=== PATIENT | female | born 1995 | race Caucasian/White ===

== ENCOUNTER 2024-08-02 10:53 | Inpatient (IN) ==
[2024-08-02] MEDS ORDERED: OXYTOCIN 30 UNITS/NSS 30 UNITS/500 ML BAG IV PRN ×2 (11:40→18:56)
--- NOTE | 2024-08-02 11:53 | Labor Progress Brief Note ---
Date of Service August 02, 2024 Subjective Contractions Q2-3m since 0600. No VB, no LOF, good FM. Prior . Current preg c/b obesity, A2GDM with insulin at bedtime only, and GBS pos. Maternal SSRI use also noted. Assessment & Plan (1) Normal labor: Plan: Admit. Epidural if desired, Pit if needed for augmentation. (2) Group B streptococcal infection during : Plan: PCN (3) Obesity affecting : Plan: Noted (4) Insulin controlled gestational diabetes mellitus (GDM) during : Plan: Q1h FSBG, then if any 130 or higher will initiate protocol for mgmt. Admission and Anticipated Discharge Date Admission Date: August 02, 2024 Physical Exam Genitourinary: [place] Q3 Cvx /-2 FHT Cat 1 Results & Data Vital Signs (Past 12 Hours) Vital Signs Temp Pulse Resp BP 08/02/24 11:22 97.7 F 22 08/02/24 11:09 97.7 F 96 H 22 125/84 Coding Level of Care Code None Diagnoses Normal labor O80; Z37.9 Group B streptococcal infection during O98.819; B95.1 Obesity affecting O99.210 Insulin controlled gestational diabetes mellitus (GDM) during O24.414
[2024-08-02] MEDS: PENICILLIN GK 6 MU in SODIUM CHLORIDE 0.9% 250 ML IV STA (12:12)
[2024-08-02] MEDS: LACTATED RINGER'S 1,000 ML IV PRN (12:12)
[2024-08-02 12:35] LABS: Hemoglobin 11.7 g/dl (12.0-16.0); Mean Corpuscular Hemoglobin 25.5 pg (25.0-34.0); Mean Corpuscular Hgb Conc 32.5 g/dL (32.0-36.0); Mean Corpuscular Volume 78.6 fL (80.0-100.0); Mean Platelet Volume 10.4 fL (9.4-12.4); Platelet Count 359 K/uL (130-400); RDW Coefficient of Variation 15.4 % (11.5-14.5); RDW Standard Deviation 43.2 fL (36.4-46.3); Red Blood Count 4.58 M/uL (4.20-5.40); White Blood Count 11.42 K/ul (4.8-10.8)
[2024-08-02] MEDS ORDERED: ePHEDrine sulfate 50 MG/ML AMP IV PRN (12:41)
[2024-08-02] MEDS ORDERED: diphenhydrAMINE 50 MG/ML VIAL IV PRN (12:41)
[2024-08-02] MEDS ORDERED: SODIUM CHLORIDE 0.9% PF INJ 10 ML VIAL EPI PRN (12:41)
[2024-08-02] MEDS ORDERED: NALBUPHINE HCL INJ 10 MG/ML AMP IV PRN (12:41)
[2024-08-02] MEDS ORDERED: fentaNYL citrate PF 100 MCG/2 ML VIAL EPI PRN (12:41)
[2024-08-02] MEDS ORDERED: NALOXONE HCL 0.4 MG/1 ML VIAL/CARP IV PRN (12:41)
[2024-08-02] MEDS ORDERED: BUPIVACAINE 0.25% PF 30 ML VIAL EPI PRN (12:41)
[2024-08-02] MEDS ORDERED: ROPIVACAINE 0.5% PF 5 MG/ML 20 ML VIAL EPI PRN (12:41)
[2024-08-02] MEDS ORDERED: NALOXONE HCL 1 MG in SODIUM CHLORIDE 0.9% 1,000 ML IV PRN (12:41)
[2024-08-02] MEDS ORDERED: LIDOCAINE 2% MPF LOCAL 5 ML VIAL EPI PRN (12:41)
--- NOTE | 2024-08-02 12:46 | Anesthesiology Consultation ---
Date of Service August 02, 2024 Assessment & Plan (1) Encounter for pre-operative examination: Chart Review Chart Review: Patient NOT seen in Pre Admission Testing and Acceptable Risk for Labor Epidural Consults Requested none History Height/Weight Height: 5 ft 2.5 in Weight: 94.602 kg Allergies Allergy/AdvReac Type Severity Reaction Status Date / Time No Known Allergies Allergy Verified 07/20/24 14:05 Medications Home Medications Medication Instructions Recorded Confirmed Last Taken omeprazole magnesium 10 mg oral 20 mg PO 12/23/23 07/20/24 Unknown suspension,delayed release (Prilosec) prenat.vits,kulwant,qht-hxzi-odpwt tab PO 12/23/23 07/20/24 Unknown sertraline 100 mg tablet 100 mg PO 12/23/23 07/20/24 Unknown acetone (urine) test (Ketone Urine #50 ea 05/07/24 07/20/24 Unknown Test strips) blood sugar diagnostic (OneTouch #150 ea 05/07/24 07/20/24 Unknown Verio test strips) blood-glucose meter (OneTouch #1 ea 05/07/24 07/20/24 Unknown Verio Reflect Meter) lancets 33 gauge (OneTouch Delica #150 ea 05/07/24 07/20/24 Unknown Plus Lancet) insulin NPH isoph U-100 human 100 8 unit (0.08 mL) subcut .at bed 06/21/24 07/20/24 Unknown unit/mL (3 mL) subcutaneous pen time #15 mL (Novolin N FlexPen) insulin aspart U-100 100 unit/mL 5 unit (0.05 mL) subcut TID #15 mL 06/21/24 07/20/24 Unknown (3 mL) subcutaneous pen (Novolog FlexPen U-100 Insulin aspart) pen needle, diabetic 32 gauge x #100 ea 06/21/24 07/20/24 Unknown 5/32" (BD Ultra-Fine Tanna Pen Needle) Active Medications Generic Name Dose Route Start Last Admin Trade Name Freq PRN Reason Stop Dose Admin Lactated Ringer's 1,000 mls @ 125 mls/hr 08/02/24 11:40 08/02/24 12:12 Lr IV 08/03/24 11:39 999 mls/hr .Q8H PRN Administration L&D Protocol Protocol Past Medical History Medical History (Updated 08/02/24 @ 13:09 by Jared Nicholas MD) Encounter for pre-operative examination Exercise / Class Metabolic Activity II 4-5 Yardwork/Stairs/Walk up hill Social History Smoking Status: Current every day smoker Smoking cigarettes per day: vapes Hx Alcohol Use: No Hx Substance Use: No Physical Exam Vital Signs Last Vital Signs Temp 36.5 C 08/02/24 11:22 Pulse 81 08/02/24 13:07 Resp 22 08/02/24 11:22 BP 141/84 H 08/02/24 13:07 Pulse Ox 100 08/02/24 13:06 Testing Laboratory Results 08/02/24 12:03 08/02/24 11:56 POC Glucose 79
[2024-08-02] MEDS: BUPIVACAINE 0.25% PF 30 ML VIAL ONE (13:04)
[2024-08-02] MEDS: LIDOCAINE 2%/EPINEPHRINE 1:200,000 20 ML PF ONE (13:09)
[2024-08-02] MEDS: fentaNYL citrate PF 100 MCG/2 ML VIAL ONE (13:10)
[2024-08-02] MEDS: fentANYL 2 MCG/ML BUPIVacaine 0.125%-NSS 100ML BAG ONE (13:10)
[2024-08-02] MEDS: BUPIVACAINE 0.25% PF 30 ML VIAL EPI STA (14:39)
[2024-08-02] MEDS: fentaNYL citrate PF 100 MCG/2 ML VIAL EPI STA (14:39)
[2024-08-02] MEDS: SODIUM CHLORIDE 0.9% PF INJ 10 ML VIAL EPI STA (14:40)
[2024-08-02] MEDS: LIDOCAINE 2%/EPINEPHRINE 1:200,000 20 ML PF EPI STA (14:40)
[2024-08-02] MEDS: PENICILLIN GK 3 MU in DEXTROSE 5% 100 ML IV PRN (16:04)
[2024-08-02] MEDS: OXYTOCIN 30 UNITS/NSS 30 UNITS/500 ML BAG IV PRN (16:56)
[2024-08-02] MEDS ORDERED: ROPIVACAINE 0.5% 5 MG/ML 30 ML VIAL ONE (17:38)
[2024-08-02] MEDS ORDERED: LIDOCAINE 2%/EPINEPHRINE 1:200,000 20 ML PF ONE (17:38)
--- NOTE | 2024-08-02 17:46 | Communication Note ---
Date of Service: August 02, 2024 spoke to pt, aware i am assuming care. fhts categ 1. pitocin infusing. she is trying to get more comfortable s/p epidural. nurse is repositioning etc.
[2024-08-02] MEDS: fentANYL 2 MCG/ML BUPIVacaine 0.125%-NSS 100ML BAG EPI PRN (18:11)
[2024-08-02] MEDS: LIDOCAINE 1% LOCAL 20 ML VIAL INFIL PRN (18:39)
--- NOTE | 2024-08-02 18:43 | Delivery Summary ---
Vaginal Delivery Summary Date of Service August 02, 2024 Vaginal Delivery Summary and 2nd Degree LAC The patient dilated to ant lip and was very uncomfortable and screaming with ctx. Readied for delivery and pushed to reduce lip and then proceeded to push in <10min to deliver a viable male Apgars 7 and 9 via over 2nd degree perineal laceration. Nuchal x 1 noted and delivered through. Mouth and nose bulb suctioned at perineum. Shoulders and body delivered with ease. Infant was with good tone and cried after . Cord clamped at 30 seconds of life and infant to maternal abdomen where the cord was then doubly clamped and cut. Placenta delivered spontaneously and intact, three-vessel cord. Hemostasis achieved with dilute pitocin and uterine massage. Laceration repaired with 3-0 vicryl in routine fashion. Cervix and sulci intact. QBL 135 cc. Mother and baby stable in recovery. [facility] [place] Vaginal Delivery Charge Delivery Type Details: and 2nd Degree LAC
[2024-08-02] MEDS ORDERED: ACETAMINOPHEN 325 MG TAB PO PRN (18:56)
[2024-08-02] MEDS ORDERED: oxyCODONE/ACETAMINOPHEN 5mg/325mg TAB PO PRN (18:56)
[2024-08-02] MEDS ORDERED: HYDROCORTISONE ACETATE 25 MG SUPP PR PRN (18:56)
[2024-08-02] MEDS: SODIUM CHLORIDE 0.9% PF INJ 10 ML VIAL ONE (19:05)
[2024-08-02] MEDS: ePHEDrine sulfate 50 MG/ML AMP ONE (19:05)
[2024-08-02] MEDS: DIPHTHER/TETAN/PERTUS Vaccine (Tdap, Adol/Adult) 0.5mL IM ONE (19:44)
--- NOTE | 2024-08-02 19:47 | Anesthesia Procedure Note ---
Date of Service August 02, 2024 Anesthesia Post Epidural Note Vital Signs Vital Signs: Temp Pulse Resp BP Pulse Ox 36.6 C 82 18 120/55 L 98 08/02/24 19:34 08/02/24 19:34 08/02/24 19:34 08/02/24 19:34 08/02/24 18:16 Pain Intensity Lower Abdomen: Pain Intensity: 4 Notes Mental Status: alert / awake / arousable and participated in evaluation Patient Amnestic to Procedure: No Nausea / Vomiting: adequately controlled Pain: adequately controlled Airway Patency, RR, SpO2: stable & adequate BP & HR: stable & adequate Hydration State: stable & adequate Neuraxial Anesthesia: was administered and sensory block is resolving Anesthetic Complications: no major complications apparent and Pt Satisfied with anesthetic care Epidural: Removed without complications and With tip intact
[2024-08-02] MEDS: BENZOCAINE 20% SPRY 85 APPLN/85 GM CAN EXT PRN (20:55)
[2024-08-02] MEDS: DOCUSATE SODIUM 100 MG CAP PO SCH (21:04)
[2024-08-02] MEDS ORDERED: Nursing to Pharmacy Communication SCH (21:45)
[2024-08-02] MEDS: IBUPROFEN 600 MG TAB PO PRN (23:04)
[2024-08-03] MEDS: SERTRALINE HCL 100 MG TABLET PO SCH (00:39)
--- NOTE | 2024-08-03 07:28 | Obstetrical Progress Note ---
Date of Service August 03, 2024 Assessment & Plan (1) exam: Plan stable routine care. desires dc home later today. bottle/rh neg/ri. instructions reviewed. f/u 6 wk pp check. Subjective Ambulation: ambulating normally Voiding: no voiding problems Diet Tolerance:: regular diet Lochia:: Small Feeding Type:: bottle feeding pain well controlled Constitutional: + as per Subjective / HPI Physical Exam Constitutional WD/WN, vitals as above Respiratory normal respiratory effort, lungs clear to auscultation Cardiovascular Rate/Rhythm: regular rate and regular rhythm Gastrointestinal (Abdomen) Inspection/Auscultation: abdomen normal to inspection Percussion/Palpation: abdomen soft Fundus firm 2cm down Musculoskeletal nt calves [] edema Neurologic grossly normal Psychiatric A+Ox3, euthymic affect Results & Data Vital Signs (Past 12 Hours) Vital Signs Temp Pulse Pulse Resp BP BP Pulse Ox 08/03/24 03:30 97.9 F 62 16 119/71 99 08/02/24 23:05 97.7 F 86 16 134/78 97 08/02/24 21:00 98.2 F 70 18 128/77 99 08/02/24 20:34 98.6 F 18 08/02/24 20:33 91 H 08/02/24 20:33 112/63 08/02/24 20:18 80 08/02/24 20:18 125/65 08/02/24 20:05 71 08/02/24 20:05 126/73 08/02/24 20:04 97.9 F 18 08/02/24 19:34 97.9 F 18 08/02/24 19:34 82 08/02/24 19:34 120/55 L O2 Del Method 08/03/24 03:30 Room Air 08/02/24 23:05 Room Air 08/02/24 21:00 Room Air 08/02/24 20:34 08/02/24 20:33 08/02/24 20:33 08/02/24 20:18 08/02/24 20:18 08/02/24 20:05 08/02/24 20:05 08/02/24 20:04 08/02/24 19:34 08/02/24 19:34 08/02/24 19:34
[2024-08-03] MEDS: PRENATAL VITAMIN 1 TAB PO SCH (08:21)
[2024-08-03] MEDS ORDERED: SERTRALINE HCL 100 MG TABLET PO SCH (09:00)
[2024-08-03 13:36] VITALS: O2SAT 98
[2024-08-03 18:10] VITALS: BP 133/83; PULSE 79; RESP 20; TEMP 98.4
[2024-08-03] MEDS ORDERED: bisacodyL 5 MG TABEC PO SCH (20:00)
== END 2024-08-03 20:15 | disposition home or self-care (01) | DRG 806 ==
LOC: OPB 10:53 → 4S1 11:07 → 4E2 21:13